=== PATIENT | female | born 1990 | race Caucasian/White ===

== ENCOUNTER 2017-03-17 07:42 | Emergency (ER) | payer OTHER ==
[~2017-03-17] VITALS: Ht 162.6 cm; Wt 64.9 kg
[2017-03-17 07:58] VITALS: Ht 162.6 cm; Wt 64.9 kg
[2017-03-17 10:48] LABS: PLATELET COUNT 273 x10^3mcL (130-400)
[2017-03-17 10:54] LABS: BASOPHIL % 0 % (0-2); RED CELL DISTRIBUTION WIDTH 14.6 % (11.5-14.5)
[2017-03-17 11:30] LABS: microscopic required? YES; urine erythrocyte 3+ (NEGATIVE)
[2017-03-17 13:59] VITALS: BP 112/72
== END 2017-03-17 13:59 | disposition home or self-care (01) ==
LOC: ED 07:42
PROVIDERS: Specialist
DX: O20.0 Threatened abortion (principal); Z3A.01 Less than 8 weeks gestation of pregnancy
CPT/HCPCS: 36415